=== PATIENT | female | born 1985 | race Caucasian/White ===

== ENCOUNTER 2016-08-01 13:31 | Emergency (ER) | payer BC, OTHER ==
--- NOTE | 2016-08-01 13:39 | EDPHY ---
H & P Stated Complaint: slipped on ice last night hit head/denies loc/"feels foggy "today Time Seen by Provider: 08/01/16 13:39 - Personal History LMP (Females 10-55): 8-14 Days Ago Current Tetanus/Diphtheria Vaccine: Yes - Medical/Surgical History Hx Asthma: No Hx Chronic Respiratory Disease: No Hx Diabetes: No Hx Cardiac Disease: No Hx Renal Disease: No Hx Cirrhosis: No Hx Alcoholism: No Hx HIV/AIDS: No Hx Splenectomy or Spleen Trauma: No Other PMH: POS - Social History Smoking Status: Never smoked Constitutional: Initial Vital Signs Temperature (C) 36.7 C 08/01/16 13:34 Heart Rate 86 08/01/16 13:34 Respiratory Rate 16 08/01/16 13:34 Blood Pressure 119/57 L 08/01/16 13:34 O2 Sat (%) 95 08/01/16 13:34 O2 Delivery Mode Room Air Allergies/Adverse Reactions: No Known Allergies Allergy (Verified 12/15/12 10:45) Home Medications: Medication Instructions Recorded NK [No Known Home Meds] 08/01/16 Medical Decision Making ED Course/Re-evaluation: CHIEF COMPLAINT: Fall HISTORY OF PRESENT ILLNESS: Healthy 30-year-old female who yesterday evening approximately 2:15 p.m. hours ago slipped on the ice and hit the back of her head. She denies loss of consciousness, she denies nausea or vomiting, she denies any neurologic problems, she denies any scalp trauma of significance, she denies any amnesia either retrograde or antegrade. She has a very mild headache and just wanted to get checked out to make sure she is okay REVIEW OF SYSTEMS: A 10 point review of systems was performed and is negative with the exception of the elements mentioned in the history of present illness. PHYSICAL EXAM: HR, BP, O2 Sat, RR. Temp noted General Appearance: Alert, well hydrated, appropriate, and non-toxic appearing. Head: Atraumatic without scalp tenderness or obvious injury Eyes: Pupils equal, round, reactive to light and accommodation, EOMI, no trauma , no injection. Ears: Clear bilaterally, no perforation, normal landmarks Nose: Atraumatic, no rhinorrhea, clear. Throat: There is no erythema or exudates, no lesions, normal tonsils, mucus membranes moist. Neck: Supple, 2+ carotid upstroke, nontender, no lymphadenopathy. Respiratory: No retractions, no distress, no wheezes, and no accessory muscle use. Lungs are clear to auscultation bilaterally. Cardiovascular: Regular rate and rhythm, no murmurs, rubs, or gallops. Bilateral carotid, radial, dorsalis pedis, and posterior tibial pulses intact. Good capillary refill all extremities. Gastrointestinal: Abdomen is soft, nontender, non-distended, no masses, no rebound, no guarding, no peritoneal signs. Musculoskeletal: Normal active ROM of all extremities, atraumatic. Neurological: Alert, appropriate, and interactive. The patient has normal DTRs and non-focal cranial nerves, motor, sensory, and cerebellar exam. Skin: No rashes, good turgor, no nodules on palpation. Past medical history: None she does not take any blood thinners Past surgical history: Noncontributory Family history: Noncontributory Social history: Single, employed, does not abuse tobacco drugs or alcohol DIAGNOSTICS/PROCEDURES/CRITICAL CARE TIME: Negative Grainger head CT rules set no scan indicated DIFFERENTIAL DIAGNOSIS: The differential diagnosis for the patient's trauma included but was not limited to intracranial injury, long bone and pelvic bone fractures, spinal injury, intra-abdominal injury, and intra-thoracic injury. MEDICAL DECISION MAKING: This patient may have a very mild concussion. She is completely negative on the Grainger head CT rules set does not warrant imaging. Patient is very comfortable with this plan she would prefer not to have any imaging I believe she will be completely fine and have given her information about concussions, post concussive syndrome, and referred her out to a concussion expert in case her headache is not resolving in the next day or 2. Departure - Departure Disposition: Home, Routine, Self-Care Clinical Impression: Concussion Qualifiers: Encounter type: initial encounter Loss of consciousness presence/duration: without LOC Qualifier Code: (S06.0X0A) Concussion without loss of consciousness , initial encounter Condition: Good Instructions: Concussion (ED) Referrals: NONE *PRIMARY CARE P,. [Primary Care Provider] - As per Instructions Lucinda Nj MD [Medical Doctor] - As per Instructions
[2016-08-01 13:57] VITALS: BP 125/79; PULSE 74; RESP 20; TEMP 98.6; O2SAT 97
== END 2016-08-01 13:49 | disposition home or self-care (01) ==
DX: S06.0X0A Concussion without loss of consciousness, initial encounter (principal); W00.0XXA Fall on same level due to ice and snow, initial encounter

== ENCOUNTER 2017-07-08 16:22 | Emergency (ER) | payer OTHER ==
[2017-07-08 16:32] VITALS: RESP 18
[2017-07-08] MEDS ORDERED: NS 1,000 ML IV ONE (18:23)
--- NOTE | 2017-07-08 18:27 | CPEKG ---
Heart Rate: 90 RR Interval: 667 P-R Interval: 136 QRSD Interval: 92 QT Interval: 368 QTC Interval: 451 P Allons: 67 QRS Allons: 61 T Wave Allons: 67 EKG Severity - BORDERLINE ECG - EKG Impression: SINUS RHYTHM EKG Impression: INFERIOR Q WAVES, PROBABLY NORMAL VARIATION Electronically Signed By: Bin Ocampo 08-Jul-2017 20:00:20
[2017-07-08 18:35] LABS: PLATELET COUNT 262 10^3/uL (150-400)
--- NOTE | 2017-07-08 19:56 | EDPHY ---
H & P Stated Complaint: generalized chest and abd pain for 2 weeks HPI/ROS: Chief complaint: Chest and abdominal pain History of present illness: This is a 31-year-old female who presents to the emergency department for evaluation of chest and abdominal pain. She reports the onset of symptoms over the last 2 weeks. She states symptoms are persistent nature. Primarily involves the chest although on occasion involves the upper aspect of the abdomen. She describes a pressure. No precipitating factors noted. No alleviating or aggravating factors noted. No other associated signs or symptoms including no fevers, no cough, no shortness of breath, no pain or swelling in the legs, no nausea, vomiting or diarrhea, no urinary symptoms. Review of systems: A 10 point review of systems was obtained and other than described above was negative - Personal History LMP (Females 10-55): IUD In Place Current Tetanus/Diphtheria Vaccine: Yes - Medical/Surgical History Hx Asthma: No Hx Chronic Respiratory Disease: No Hx Diabetes: No Hx Cardiac Disease: No Hx Renal Disease: No Hx Cirrhosis: No Hx Alcoholism: No Hx HIV/AIDS: No Hx Splenectomy or Spleen Trauma: No Other PMH: PcOS - Social History Smoking Status: Never smoked - Physical Exam Exam: General Appearance: Alert, nontoxic. Eyes: Pupils equal and round no pallor or injection. ENT, Mouth: Mucous membranes moist. Respiratory: There are no retractions, lungs are clear to auscultation. Cardiovascular: Regular rate and rhythm. Gastrointestinal: Abdomen is soft and non tender, no masses, bowel sounds normal. Neurological: Alert and oriented x4. Cranial nerves 2-12 grossly intact. Strength and sensation intact and symmetrical. Skin: Warm and dry, no rashes. Musculoskeletal: Neck is supple non tender. Extremities are symmetrical, full range of motion. Psychiatric: Patient is oriented X 3, there is no agitation. Constitutional: Initial Vital Signs Temperature (C) 36.9 C 07/08/17 16:30 Heart Rate 90 07/08/17 16:30 Respiratory Rate 18 07/08/17 16:30 Blood Pressure 159/80 H 07/08/17 16:30 O2 Sat (%) 96 07/08/17 16:30 O2 Delivery Mode Room Air Allergies/Adverse Reactions: No Known Allergies Allergy (Verified 07/08/17 16:30) Home Medications: Medication Instructions Recorded NK [No Known Home Meds] 08/01/16 Medical Decision Making - Diagnostics Imaging: I viewed and interpreted images myself ED Course/Re-evaluation: Patient seen under the supervision of my secondary supervising physician Dr. Bin Ocampo. Patient presents to the emergency department for nonspecific chest and abdominal pain. On presentation she is nontoxic. Afebrile and vital signs are stable. Physical exam is benign. Blood studies and imaging studies are unremarkable. I have discussed with her it is not clear as to the cause of her symptoms. However, I do believe she is appropriate for outpatient management. She will be discharged home. Home care is discussed. She is to follow up with a primary care doctor for recheck. Strict return precautions are given. Patient voiced understanding and agreement with plan. Differential Diagnosis: Included but not limited to anxiety, reflux, cardiac dysrhythmia, ACS, pulmonary infection down, pulmonary embolism, peptic ulcer disease, biliary tract disease, pancreatitis, - Data Points Laboratory Results: Laboratory Results 07/08/17 17:48 07/08/17 17:48 Medications Given: Discontinued Medications Sodium Chloride (Ns) 1,000 mls @ 0 mls/hr IV EDNOW ONE; Wide Open PRN Reason: Protocol Stop: 07/08/17 18:24 Last Admin: 07/08/17 18:45 Dose: 1,000 mls Departure - Departure Disposition: Home, Routine, Self-Care Clinical Impression: Chest pain Qualifiers: Chest pain type: unspecified Qualified Code(s): R07.9 - Chest pain, unspecified Condition: Good Instructions: Chest Pain (ED) Additional Instructions: Follow-up with your primary care doctor this week for recheck If symptoms worsen or new symptoms develop return to the emergency room for recheck Referrals: Johana Ramirez MD [Primary Care Provider] - As per Instructions
[2017-07-08 21:19] VITALS: BP 106/63; PULSE 76; TEMP 98.8; O2SAT 95
== END 2017-07-08 21:20 | disposition home or self-care (01) ==
PROC: 3E0337Z Introduction of Electrolytic and Water Balance Substance into Peripheral Vein, Percutaneous Approach (ICD-10-PCS; principal; 2017-07-08)
DX: R07.9 Chest pain, unspecified (principal); E86.9 Volume depletion, unspecified